=== PATIENT | male | born 1955 | race Caucasian/White ===

== ENCOUNTER 2019-05-04 19:56 | Emergency (ER) | payer MEDICARE, MEDICAID ==
--- NOTE | 2019-05-04 20:45 | RAD ---
Exam:Right hand 3 views HISTORY: Hit hand on dresser. Pain. COMPARISON: None FINDINGS: Mildly displaced oblique fracture of the fifth metacarpal. Associated soft tissue swelling. No additional fracture. IMPRESSION: Fifth metacarpal fracture.
== END 2019-05-04 21:25 | disposition home or self-care (01) ==
LOC: MADERS 19:56
DX: S62.326A Displaced fracture of shaft of fifth metacarpal bone, right hand, initial encounter for closed fracture (principal); G47.00 Insomnia, unspecified; E78.00 Pure hypercholesterolemia, unspecified; G47.30 Sleep apnea, unspecified; F32.9 Major depressive disorder, single episode, unspecified; F17.210 Nicotine dependence, cigarettes, uncomplicated; Z79.899 Other long term (current) drug therapy; W20.8XXA Other cause of strike by thrown, projected or falling object, initial encounter
CPT/HCPCS: 26600